=== PATIENT | male | born 1995 | race Caucasian/White ===

== ENCOUNTER 2022-06-20 08:21 | Outpatient (CLI) | payer OTHER, SELFPAY ==
--- NOTE | 2022-06-30 22:58 | WPDHOMESLEEP ---
Sleep Study - Home Unattended Date of Study: 06/20/22 Ordering Provider: Gerhard Mckeon APRN Interpreting Provider: Shonda Zaragoza, DO Home Sleep Study Type: Watch PAT Height: 1.65 m Weight: 63.503 kg Body Mass Index: 23.3 Neck Circumference (inches): 15 [place]: 15 Reason for Sleep Study Unrefreshing sleep, waking up gasping for air Sleep History The patient is a 27-year-old male with bipolar disorder with depression, anxiety, hyperlipidemia and current vaping with nicotine that had a sleep study ordered by the Pulmonary office for evaluation of sleep apnea. The patient occasionally awakens from sleep short of breath. He denies awakening at night with heartburn, belching or cough. He frequently snores loud enough that others complain. He constantly has trouble sleeping when he has a cold. He occasionally wakes up gasping for air throughout the night. He frequently has breathing problems at night observed by himself or others. He occasionally sweats excessively at night. He occasionally has heart palpitations or irregular heartbeats during the night. He occasionally falls asleep during the day but rarely while driving. He denies cataplexy. He occasionally has trouble at school or work due to sleepiness. He rarely feels unable to move while waking up or falling asleep. He occasionally experiences vivid dreamlike scenes upon awakening or falling asleep. He denies feeling afraid of going to sleep. He occasionally has nightmares. He occasionally remembers his dreams. He frequently has thoughts racing through his mind. He occasionally feels sad or depressed. He frequently has anxiety. He denies having muscular tension. He occasionally notices parts of his body jerk. He occasionally kicks during the night. He rarely has crawling and aching feelings in his legs but denies having leg pain during the night. He rarely grinds his teeth during sleep but denies awakening with morning jaw pain. He is occasionally bothered by pain during the day per rarely awakened by pain during the night. He occasionally wakes up feeling stiff in the morning. He occasionally wakes up with sore achy muscles. He occasionally wakes up with pain in the neck, spine or other joints. He goes to bed at 10:00 p.m. on weekdays and at 11:00 p.m. on the weekends. It takes him 30-45 minutes to fall asleep. He wakes up 1-4 times throughout the night for unknown reasons. It takes him 15 minutes to fall back asleep. He wakes up at 6:00 a.m. on weekdays and at 8:00 a.m. on the weekends. He typically gets 6 hours of sleep per night. He will stay in bed for 30 minutes after waking up in the morning. He currently lives with a roommate. He does not consume any caffeinated beverages within 2 hours of bedtime. He does not engage in physical exercise before bedtime. He will watch television before falling asleep. He denies taking naps in the afternoon or the evening. He drinks 4 caffeinated beverages per day. He quit smoking cigarettes several years ago but currently vapes with nicotine. He denies alcohol and recreational drug PMFSH Past Medical History Medical History (Updated 06/30/22 @ 23:06 by Shonda Zaragoza DO) Bipolar disorder with depression Hyperlipidemia Family History Family History Other Diabetes mellitus Family history of arthritis Family history of migraine headaches Hypertension Social History Social History Smoking status: Never smoker Tobacco type: e-cigarettes/vaping Second hand tobacco smoke exposure: No Additional smoking assessment comments: currently vapes daily Alcohol intake: never Substance use: never Substance use type: does not use Medications Home Medications Medication Instructions Recorded Confirmed Type citalopram 40 mg tablet See Rx Instructions .Route 04/05/22 04/30/22
== END 2022-06-21 10:11 | disposition home or self-care (01) ==
LOC: ANHCSM 08:23
PROVIDERS: PCP Family Medicine; Visit Provider Nurse Practitioner Family
DX: G47.9 Sleep disorder, unspecified (principal); G47.10 Hypersomnia, unspecified
CPT/HCPCS: 95800

== ENCOUNTER 2022-07-18 07:21 | Outpatient (CLI) | payer OTHER, SELFPAY ==
--- NOTE | 2022-06-30 23:10 | SLEEP_ITS ---
This report was moved to the correct visit on 08/16/22. Original report was signed by Shonda Zaragoza DO on 06/30/22 5600. Sleep Study - Home Unattended Date of Study: 06/20/22 Ordering Provider: Gerhard Mckeon APRN Interpreting Provider: Shonda Zaragoza DO [place] Sleep Study Type: Watch PAT Height: 1.65 m Weight: 63.503 kg Body Mass Index: 23.3 Neck Circumference (inches): 15 [place]: 15 Reason for Sleep Study Unrefreshing sleep, waking up gasping for air Sleep History The patient is a 27-year-old male with bipolar disorder with depression, anxiety, hyperlipidemia and current vaping with nicotine that had a sleep study ordered by the Pulmonary office for evaluation of sleep apnea. The patient occasionally awakens from sleep short of breath. He denies awakening at night with heartburn, belching or cough. He frequently snores loud enough that others complain. He constantly has trouble sleeping when he has a cold. He occasionally wakes up gasping for air throughout the night. He frequently has breathing problems at night observed by himself or others. He occasionally sweats excessively at night. He occasionally has heart palpitations or irregular heartbeats during the night. He occasionally falls asleep during the day but rarely while driving. He denies cataplexy. He occasionally has trouble at school or work due to sleepiness. He rarely feels unable to move while waking up or falling asleep. He occasionally experiences vivid dreamlike scenes upon awakening or falling asleep. He denies feeling afraid of going to sleep. He occasionally has nightmares. He occasionally remembers his dreams. He frequently has thoughts racing through his mind. He occasionally feels sad or depressed. He frequently has anxiety. He denies having muscular tension. He occasionally notices parts of his body jerk. He occasionally kicks during the night. He rarely has crawling and aching feelings in his legs but denies having leg pain during the night. He rarely grinds his teeth during sleep but denies awakening with morning jaw pain. He is occasionally bothered by pain during the day per rarely awakened by pain during the night. He occasionally wakes up feeling stiff in the morning. He occasionally wakes up with sore achy muscles. He occasionally wakes up with pain in the neck, spine or other joints. He goes to bed at 10:00 p.m. on weekdays and at 11:00 p.m. on the weekends. It takes him 30-45 minutes to fall asleep. He wakes up 1-4 times throughout the night for unknown reasons. It takes him 15 minutes to fall back asleep. He wakes up at 6:00 a.m. on weekdays and at 8:00 a.m. on the weekends. He typically gets 6 hours of sleep per night. He will stay in bed for 30 minutes after waking up in the morning. He currently lives with a roommate. He does not consume any caffeinated beverages within 2 hours of bedtime. He does not engage in physical exercise before bedtime. He will watch television before falling asleep. He denies taking naps in the afternoon or the evening. He drinks 4 caffeinated beverages per day. He quit smoking cigarettes several years ago but currently vapes with nicotine. He denies alcohol and recreational drug PMFSH Past Medical History Medical History (Updated 06/30/22 @ 23:06 by Shonda Zaragoza DO) Bipolar disorder with depression Hyperlipidemia Family History Family History Other Diabetes mellitus Family history of arthritis Family history of migraine headaches Hypertension Social History Social History Smoking status: Never smoker Tobacco type: e-cigarettes/vaping Second hand tobacco smoke exposure: No Additional smoking assessmen
--- NOTE | 2022-08-17 19:35 | WPDSLEEPSTUD ---
Sleep Study Date of Study: 07/18/22 Ordering Provider: Gerhard Mckeon APRN Interpreting Physician: Shonda Zaragoza DO Sleep Study Type: Polysomnogram Height: 1.68 m Weight: 66.678 kg Body Mass Index: 23.7 Neck Circumference (inches): 15 [place]: 15 Reason for Sleep Study The patient had a home study on 06/20/2022 that showed an overall AHI of 2. Due to significance of daytime symptoms, it was advised that he have a Split Study. Sleep History The patient is a 27-year-old male with bipolar disorder with depression, anxiety, hyperlipidemia and current vaping with nicotine that had a sleep study ordered by the Pulmonary office for evaluation of sleep apnea.? The patient occasionally awakens from sleep short of breath.? He denies awakening at night with heartburn, belching or cough.? He frequently snores loud enough that others complain.? He constantly has trouble sleeping when he has a cold.? He occasionally wakes up gasping for air throughout the night.? He frequently has breathing problems at night observed by himself or others.? He occasionally sweats excessively at night.? He occasionally has heart palpitations or irregular heartbeats during the night.? He occasionally falls asleep during the day but rarely while driving.? He denies cataplexy.? He occasionally has trouble at school or work due to sleepiness.? He rarely feels unable to move while waking up or falling asleep.? He occasionally experiences vivid dreamlike scenes upon awakening or falling asleep.? He denies feeling afraid of going to sleep.? He occasionally has nightmares.? He occasionally remembers his dreams.? He frequently has thoughts racing through his mind.? He occasionally feels sad or depressed.? He frequently has anxiety.? He denies having muscular tension.? He occasionally notices parts of his body jerk.? He occasionally kicks during the night.? He rarely has crawling and aching feelings in his legs but denies having leg pain during the night.? He rarely grinds his teeth during sleep but denies awakening with morning jaw pain.? He is occasionally bothered by pain during the day per rarely awakened by pain during the night.? He occasionally wakes up feeling stiff in the morning.? He occasionally wakes up with sore achy muscles.? He occasionally wakes up with pain in the neck, spine or other joints.? He goes to bed at 10:00 p.m. on weekdays and at 11:00 p.m. on the weekends.? It takes him 30-45 minutes to fall asleep.? He wakes up 1-4 times throughout the night for unknown reasons.? It takes him 15 minutes to fall back asleep.? He wakes up at 6:00 a.m. on weekdays and at 8:00 a.m. on the weekends.? He typically gets 6 hours of sleep per night.? He will stay in bed for 30 minutes after waking up in the morning.? He currently lives with a roommate.? He does not consume any caffeinated beverages within 2 hours of bedtime.? He does not engage in physical exercise before bedtime.? He will watch television before falling asleep.? He denies taking naps in the afternoon or the evening. He drinks 4 caffeinated beverages per day.? He quit smoking cigarettes several years ago but currently vapes with nicotine.? He denies alcohol and recreational drug use. PMFSH Past Medical History Medical History Bipolar disorder with depression Hyperlipidemia Family History Family History Other Diabetes mellitus Family history of arthritis Family history of migraine headaches Hypertension Social History Social History Smoking status: Never smoker Tobacco type: e-cigarettes/vaping Second hand tobacco smoke exposure: No Additional smoking assessment comments: currently vapes daily Alcohol intake: never Substance use: never Substance use type: does not use Medications Home Medications Medication Instruct
[2022-08-17 19:36] VITALS: BMI 23.7
== END 2022-07-19 05:22 | disposition home or self-care (01) ==
PROVIDERS: PCP Family Medicine; Visit Provider Nurse Practitioner Family
DX: G47.10 Hypersomnia, unspecified (principal); G47.9 Sleep disorder, unspecified
CPT/HCPCS: 95810

== ENCOUNTER 2023-08-06 10:13 | Outpatient (CLI) | payer OTHER, SELFPAY ==
--- NOTE | 2023-08-06 10:46 | ECG_ITS ---
Measurements Intervals [place] Rate: 61 P: 35 NE: 151 QRS: 18 QRSD: 99 T: 30 QT: 381 QTc: 385 Interpretive Statements SINUS RHYTHM INCOMPLETE RIGHT BUNDLE BRANCH BLOCK [90+ ms QRS DURATION, TERMINAL R IN V1/V2, 40+ ms S IN I/aVL/V4/V5/V6] BORDERLINE ECG NO PREVIOUS ECG AVAILABLE FOR COMPARISON Electronically Signed On 08-06-2023 15:40:47 CDT by Ld Del Valle M.D.
[2023-08-06 12:02] LABS: Hematocrit 43.3 % (42.0-52.0); Hemoglobin 14.8 g/dL (14.0-18.0); Mean Corpuscular HGB Conc 34.2 g/dl (32-36); Mean Corpuscular Hemoglobin 32.4 pg (26-34); Mean Corpuscular Volume 94.7 fl (80-100); Mean Platelet Volume 9.4 fl (7.4-10.4); Platelet Count Result 259 k/mm3 (150-375); Red Blood Count 4.57 M/mm3 (4.6-6.20); Red Cell Distribution Width 11.7 % (11.5-14.5); White Blood Count 4.7 K/mm3 (4.5-10.0)
[2023-08-06 12:07] LABS: Alanine Aminotransferase 24 U/L (6-50); Albumin Level 4.2 g/dL (3.5-5.1); Alkaline Phosphatase 68 U/L (38-126); Anion Gap 4 mmol/L (8-16); Aspartate Amino Transferase 22 U/L (17-59); Bilirubin,Total 0.6 mg/dL (0.2-1.3); Blood Urea Nitrogen 13 mg/dL (9-20); Calcium 8.9 mg/dL (8.4-10.2); Carbon Dioxide 31 mmol/L (22-30); Chloride 103 mmol/L (98-107); Estimated Glomerular Filt Rate > 60; Glucose 85 mg/dL (65-110); Potassium 4.3 mmol/L (3.4-5.0); Sodium 138 mmol/L (137-145)
[2023-08-06 12:32] LABS: Free T4 Free Thyroxine 0.73 ng/mL (0.78-2.19); Thyroid Stimulating Hormone 0.519 uIU/mL (0.465-4.680)
== END 2023-08-06 10:14 | disposition home or self-care (01) ==
LOC: ANHLAB 10:13
PROVIDERS: PCP Family Medicine; Visit Provider Physician Assistant
DX: R42 Dizziness and giddiness (principal); I45.10 Unspecified right bundle-branch block; R93.1 Abnormal findings on diagnostic imaging of heart and coronary circulation
CPT/HCPCS: 36415; 80053; 84439; 84443; 85027; 93005